=== PATIENT | female | born 1935 | race Caucasian/White ===

== ENCOUNTER 2017-12-03 10:00 | Outpatient (RCR) | payer MEDICARE, OTHER, SELFPAY ==
--- NOTE | 2017-09-26 10:57 | HP.PTEVAL ---
Patient's Visit Information JOSUE CONROY is a 82 year old F referred to Physical Therapy by Radhika Montano with a diagnosis of DDD L sided sciatica, cervical radicuolpathy. Date of Evaluation: 09/26/17 Physical Therapist: Subha Lopez - Visit Plan Frequency: 1-2x /Week Duration: 4 Months Plan: 1-2X/ week for DRY NEEdling when available to L mid trap and occiput area. 1-2X/ week for US and MT to c-spine with postural exercises and US, foam rolling ( manual), and IT band stretching L hip, with some core stability. With HEP - Subjective Subjective: Pt reports that she was doing pretty well. She reports that she has had this prblems since the . Pt has back pain and butt pain and L lateral knee pain. She saw an orthopedic Dr and he said it was not her knee and that it was her sciatic. She had a CatScan recently and said it was nerves and she was going to a chiropractor couple of times and seemed to get better....then she was pulling a sheet and sheet stopped and she fell. She got prednizone. Chiro was unhappy and said she should do an MrI. Sitting make it worse, sitting in a high chair. Pt has spinal stenosis. Pt can walk or stand for awhile but then she has to sit and then she can get up and do it again. Pt is going to [facility] in Jan and has to be able to walk. No N&T into the legs. Last she was diagnosed with DM and will be treated with diet and exercise. Pt is R handed. Last night her L shoulder started hurting looking at her phone. Last 2 nights she has had to take pain pills in order to go back to sleep. The shoulder and neck has been bothering her last 4-5 months and now affecting L arm. She has had some massages and heat for temp relief. L mid trap and L arm and up into the neck. No weakness and no N&T. She has arthritis in her hands. - Pain back pain Pain Intensity (Out of 10): 5 L hip pain Pain Intensity (Out of 10): 3 Pain Intensity Range: 5 Comment: higher with walking L knee pain Pain Intensity (Out of 10): 2 neck pain Pain Intensity (Out of 10): 4 L arm pain to elbow Pain Intensity (Out of 10): 4 - Objective Gait: walks with decrease hip extension. Palpation: Tender L greater tochanter, piriformis, and down IT band. LE MMT: B hip flex 4+/5, R hip abd 4+/5 L 4/5, B hip ext 4-/5, knee flex and knee ext B 4/5. Tight HS and L IT band on the L. Pt felt a stretch B pirifomris. Trunk/Lumbar ROM: flex 75%, Ext 50%, SB B 75%. C-spine AROM: Rot R 85%, Rot L 75%, Ext 25%, Flexion 100%, SB B 25%. UE MMT: Shld flex, abd, ER and IR B 4/5. Palpation: Extremely tight B mid traps (L worse that R), OCCIPUT. Pt felt that suboccital release was a little tender and like distraction. Bicep DTR B 2+/3. Did some manual foam rolling to the L IT Band and L hip/piriformis and pt could feel the sore spots - Goals Goal 1:: I HEP Goal Time Frame: 4-6 Weeks Goal 2:: Decrease L hip and back pain to 1/10 with ADL's and be able to lye on the L hip without pain Goal Time Frame: 4-6 Weeks Goal 3:: Decrease L arm and neck pain to 1/10 with ADL;s Goal Time Frame: 4-6 Weeks Goal 4:: Decrease muscle tenderness to the L hip to be able to sleep on the L side Goal Time Frame: 4-6 Weeks Goal 5:: Decrease muscle tightness to increase c-spine AROM ( at time of eval: C-spine AROM: Rot R 85%, Rot L 75%, Ext 25%, Flexion 100%, SB B 25%) Goal Time Frame: 4-6 Weeks - Rehabilitation Potential Rehabilitation Potential: Good - Anticipated Interventions Patient/Client Instruction: Educate patient on: Plan of Care For the Purpose of:: To decrease pain, To decrease swelling/inflammation, To increase ROM, To improve nutrient delivery to tissue, To improve muscle performance and motor function, To improve ability to perform ADL's, To improve health of tissue, To decrease soft tissue restriction, To increase flexibility/ROM Therapeutic Exercise to Include: Strength training, Postural training, Flexibilty training, Active ROM, Scapular Strength/Stabilization For the Purpose of:: To decrease pain, To increase ROM, To improve nutrient delivery to tissue, To improve muscle performance and motor function, To improve ability to perform ADL's, To improve ability of physical actions for home/community/work/leisure, To improve gait and locomotor functions, To improve health of tissue, To decrease soft tissue restriction, To increase flexibility/ROM Manual Therapy Techniques to Include: Passive ROM, Functional dry needling, Soft tissue mobilization For the Purpose of:: To increase ROM, To improve nutrient delivery to tissue, To improve muscle performance and motor function, To improve health of tissue, To decrease soft tissue restriction, To increase flexibility/ROM IF ES: Yes Cryotherapy (ice pack, ice massage): Yes Thermo therapy (hot pack): Yes Ultrasound (thermal/non thermal): Yes For the Purpose of:: To decrease pain, To improve nutrient delivery to tissue, To improve ability to perform ADL's, To improve health of tissue, To decrease soft tissue restriction Thank you for the opportunity to evaluate your patient. For Medicare and Medicare HMO plans, please review the plan of care and approve it. It will need to be FAXED BACK to us at [phone] for Medicare purposes. Please let me know if there are questions or concerns regarding this plan of care. Physician Signature: Date:
--- NOTE | 2017-10-31 11:00 | HP.PTREVAL_ITS ---
Radhika Montano, It has been my pleasure to treat JOSUE CONROY over the last 8 visits for DDD L sided sciatica, cervical radicuolpathy. Please see the progress note below for an update on the physical therapy plan of care! Subjective: Day after she has been to PT she is not ready to exercise. She uses heating pad the next morning and that helps. She tried to get one of those sticks but could not find one. She has been doing HEP couple times a week. Tato did dry needling one time and it seemed to help. Pt is thinking about doing therapeutic fitness program. Pt would like to work it out a little more and would like to continue to decrease pain so that she feels comfortable to complete her exercise rountine on her own. She would like a little bit more exercises for her shoulders as well. Pt reports that she can lay on her L side for a little while Objective/Function: c-spine AROM: flex 100%, Rot B 75%, R SB 25%, L SB 50%, Ext 25% Plan Plan: 2X/ week for 5 additional visits to work towards independence with gym rountine as she would like to do clinical wellness program, schedule DN 1 additional time for L neck/shoulder area and also give gym exercises and MORE HOME EXERCISES FOR SHOULDER for home for her L shoulder as she is only doing 2 band exercises at home. Goals Goal 1:: I HEP Goal Time Frame: 4-6 Weeks Goal Progress: Progressing Goal 2:: Decrease L hip and back pain to 1/10 with ADL's and be able to lye on the L hip without pain Goal Time Frame: 4-6 Weeks Goal Progress: Progressing Goal 3:: Decrease L arm and neck pain to 1/10 with ADL;s Goal Time Frame: 4-6 Weeks Goal Progress: Progressing Goal 4:: Decrease muscle tenderness to the L hip to be able to sleep on the L side Goal Time Frame: 4-6 Weeks Goal Progress: Progressing Goal 5:: Decrease muscle tightness to increase c-spine AROM ( at time of eval: C -spine AROM: Rot R 85%, Rot L 75%, Ext 25%, Flexion 100%, SB B 25%) Goal Time Frame: 4-6 Weeks Goal Progress: Progressing Anticipated Interventions Patient/Client Instruction: Educate patient on: Plan of Care For the Purpose of:: To decrease pain, To decrease swelling/inflammation, To increase ROM, To improve nutrient delivery to tissue, To improve muscle performance and motor function, To improve ability to perform ADL's, To improve health of tissue, To decrease soft tissue restriction, To increase flexibility/ ROM Therapeutic Exercise to Include: Strength training, Postural training, Flexibilty training, Active ROM, Scapular Strength/Stabilization For the Purpose of:: To decrease pain, To increase ROM, To improve nutrient delivery to tissue, To improve muscle performance and motor function, To improve ability to perform ADL's, To improve ability of physical actions for home/community/work/leisure, To improve gait and locomotor functions, To improve health of tissue, To decrease soft tissue restriction, To increase flexibility/ROM Manual Therapy Techniques to Include: Passive ROM, Functional dry needling, Soft tissue mobilization For the Purpose of:: To increase ROM, To improve nutrient delivery to tissue, To improve muscle performance and motor function, To improve health of tissue, To decrease soft tissue restriction, To increase flexibility/ROM IF ES: Yes Cryotherapy (ice pack, ice massage): Yes Thermo therapy (hot pack): Yes Ultrasound (thermal/non thermal): Yes For the Purpose of:: To decrease pain, To improve nutrient delivery to tissue, To improve ability to perform ADL's, To improve health of tissue, To decrease soft tissue restriction Please do not hesitate to contact me at [phone] by phone or Fax: if you have questions or concerns regarding this new plan of care! Sincerely, Subha Lopez
--- NOTE | 2017-12-03 10:53 | HP.PTDCSUM_ITS ---
HP - PT D/C Summary It has been my pleasure to treat JOSUE CONROY under orders from Radhika Montano, for the diagnosis of DDD L sided sciatica, cervical radicuolpathy for a total of 13 visit(s). Discharge Date: 12/03/17 Please see the following information for a summary of their discharge status. - Subjective Subjective: Pt reports that her shoulder is still bothering her. She reports that a couple of nights she has had to take naproxen and a muscle relaxor and then she is good for a few days but she does not want to live like that. She will talk to her Dr about a cortizone shot or an MRI. 85% sciatic improvement. L shoulder improvement 40%. - Pain back pain Pain Intensity (Out of 10): 0 L hip pain Pain Intensity (Out of 10): 4 L knee pain Pain Intensity (Out of 10): 0 neck pain Pain Intensity (Out of 10): 1 L arm pain to elbow Pain Intensity (Out of 10): 3 - Overall Improvement % Improvement: 85 - Objective Objective/Function: Full B shoulder AROM. Pt did have some increase discomfort when coming out of IR on the L side. B shld MMT: flex, abd, ER and IR 4/5 B. C-spine AROM: flexion 100%, ext 50%, SB B 50%, Rot B 75% - Goals Goal 1:: I HEP Goal Progress: Goal Met Goal 2:: Decrease L hip and back pain to 1/10 with ADL's and be able to lye on the L hip without pain Goal Progress: Goal Met Goal 3:: Decrease L arm and neck pain to 1/10 with ADL;s Goal Progress: Progressing Goal 4:: Decrease muscle tenderness to the L hip to be able to sleep on the L side Goal Progress: Goal Met Goal 5:: Decrease muscle tightness to increase c-spine AROM ( at time of eval: C -spine AROM: Rot R 85%, Rot L 75%, Ext 25%, Flexion 100%, SB B 25%) Goal Progress: Progressing - Plan Plan: DC PT to Physician for possible injection to L shoulder or further diagnostics. Pt to do I H&W routine. - D/C Information Discharge Comments: DC PT to H&W and also back to physician for possible injection in L shoulder. If there are questions or concerns regarding this patient's physical therapy, please feel free to call me at [phone]. Thank you for the referral of this patient. Sincerely, Subha Lopez
== END 2017-12-03 19:00 | disposition home or self-care (01) ==
LOC: PT 10:00
PROVIDERS: Family Provider Internal Medicine; PCP Internal Medicine; Visit Provider Internal Medicine
DX: M51.36 Other intervertebral disc degeneration, lumbar region (principal); M54.12 Radiculopathy, cervical region; G89.29 Other chronic pain
CPT/HCPCS: 97035; 97110; 97140; 97162; 97530

== ENCOUNTER 2018-10-08 09:30 | Outpatient (RCR) | payer MEDICARE, OTHER, SELFPAY ==
--- NOTE | 2018-08-12 10:12 | HP.PTEVAL ---
Patient's Visit Information JOSUE CONROY is a 83 year old F referred to Physical Therapy by Ezequiel Stern MD with a diagnosis of LUMBAROSACRAL RADICULAOPATHY,DEGENERATION OF LUMBAROSCRAL DIS. Date of Evaluation: 08/12/18 Physical Therapist: Juan A Montilla PT, Cert MDT, OCS - Visit Plan Frequency: 2x /Week Duration: 4 Weeks Plan: PT INTERVENTIONS DLS,LUMBAR FLEXION,FLEXABLITY,MODALTIES FOR PAIN RELEIVE - Subjective Findings: This 83 y/o female presents to physical therapy to physical therapy with lumbar radicular . Patient has had lumbar pain for many years. Patient symptoms located left lumbar buttuck to lateral knee. Aggravating factors standing,bending,lifting,walking. Allevating symptoms better with rest and sitting.Symptoms affects sleeping. Pain described as ache. Patient denies paratesia/tingling. Bowel/bladder-. Coughing/sneezing -. Patient has seen PT in past. Seen DR Stern pain management recommended gabepetin.Patient seen chiropractor. Patient has h/o DDD /spinal stenosis. Patient symptoms affects ADL's and housework tasks. Patient symptoms affects QOL and function. VOCATION: retired. SOCIAL: single - Pain Left Back Pain Intensity (Out of 10): 4 Pain Intensity Range: 10 Left Lower Extremity Pain Intensity (Out of 10): 1 Pain Intensity Range: 10 - Objective POSTURE: rounded shoulders head foward,. PALAPTION: tender left LS-. GAIT: reciprocal [place]ol[place]. NEURO: intact ,reflexs L3-4,L4-5,L5-S1 2/3. MMT: quads/hams 4/5,hip flexion 4-/5.ankle 4/5. FLEXABLITY: hams min tight. LUMBAR ROM: flexion min loss,extension min/mod loss,side glides mod loss - Special Tests L/S Slump test left side: Negative L/S Slump test right side: Negative L/S Left Straight Leg Raise: Negative L/S Right Straight Leg Raise: Negative Lumbar Standing: Flexion - Mechanical Response: No effect Lumbar Standing: Flexion - Symptoms During Testing: No effect Lumbar Standing: Flexion - Symptoms After Testing: No effect Lumbar Standing: Extension - Mechanical Response: No effect Lumbar Standing: Extension - Symptoms During Testing: Increases Lumbar Standing: Extension - Symptoms After Testing: No worse Lumbar Standing: Right Side Glides - Mechanical Response: No effect Lumbar Standing: Right Side [place] - Symptoms During Testing: Increases Lumbar Standing: Right Side [place] - Symptoms After Testing: No worse Lumbar Standing: Left Side [place] - Mechanical Response: No effect Lumbar Standing: Left Side [place] - Symptoms During Testing: No effect Lumbar Standing: Left Side [place] - Symptoms After Testing: No effect Lumbar Lying: Flexion - Mechanical Response: No effect Lumbar Lying: Flexion - Symptoms During Testing: Decreases Lumbar Lying: Flexion - Symptoms After Testing: Better - Goals Goal 1:: Patient to be Independant with HEP Goal Time Frame: 4-6 Weeks Goal 2:: Patient to decrease lumbar pain by 50% or greater to improve function. Goal Time Frame: 4-6 Weeks Goal 3:: Patient to improve lumbar ROM for function of recovery Goal Time Frame: 4-6 Weeks Goal 4:: Patient to improve back owestry score by 5 points or greater to improve function. Goal Time Frame: 4-6 Weeks - Rehabilitation Potential Physical Therapy Diagnosis: This patient has L-S pain affects ROM ,strength ,ADL'S and function thus benifit from skilled PT Rehabilitation Potential: Good - Anticipated Interventions Patient/Client Instruction: Educate patient on: Condition, Plan of Care For the Purpose of:: To decrease pain, To increase ROM, To improve muscle performance and motor function, To improve ability to perform ADL's, To increase tolerance to activity/condition/position, To improve ability of physical actions for home/community/work/leisure, To improve health of tissue, To decrease soft tissue restriction, To increase flexibility/ROM, To improve ability to perform tasks related to life management Therapeutic Exercise to Include: Strength training, Postural training, Flexibilty training, Dynamic Lumbar Stabilization For the Purpose of:: To improve muscle performance and motor function, To improve ability to perform ADL's, To increase tolerance to activity/condition/position, To improve ability of physical actions for home/community/work/leisure, To improve gait and locomotor functions, To improve health of tissue, To decrease soft tissue restriction, To increase flexibility/ROM, To improve ability to perform tasks related to life management TENS: Yes IF ES: Yes Cryotherapy (ice pack, ice massage): Yes Thermo therapy (hot pack): Yes Ultrasound (thermal/non thermal): Yes For the Purpose of:: To decrease pain, To increase ROM, To improve nutrient delivery to tissue, To increase oxygenation perfusion, To improve health of tissue, To decrease soft tissue restriction Thank you for the opportunity to evaluate your patient. For Medicare and Medicare HMO plans, please review the plan of care and approve it. It will need to be FAXED BACK to us at [phone] for Medicare purposes. For Medicare only, by signing this I certify the plan of care. Please let me know if there are questions or concerns regarding this plan of care. Physician Signature: Date:
--- NOTE | 2018-10-08 10:00 | HP.PTDCSUM ---
HP - PT D/C Summary It has been my pleasure to treat JOSUE CONROY under orders from Ezequiel Stern MD, for the diagnosis of LUMBAROSACRAL RADICULAOPATHY,DEGENERATION OF LUMBAROSCRAL DISC for a total of 11 visit(s). Discharge Date: 10/08/18 Please see the following information for a summary of their discharge status. - Subjective Subjective: Doing better ..Able to do more ADL'S AT HOME - Pain Left Back Pain Intensity (Out of 10): 0 Left Lower Extremity Pain Intensity (Out of 10): 0 - Overall Improvement % Improvement: 50 - Objective Objective/Function: POSTURE: WFL. GAIT: NORMAL STEVE. MMT: 4/5 QUADS/HAMS /HIP/ANKLE. LUMBAR ROM: FLEXION MIN LOSS ,EXTENSION ,MOD LOSS,SIDE GLIDES MIN LOSS. FLEXABLITY: HAMS MIN LOSS - Goals Goal 1:: Patient to be Independant with HEP Goal Progress: Goal Met Goal 2:: Patient to decrease lumbar pain by 60% or greater to improve function. Goal Progress: Goal Met Goal 3:: Patient to improve lumbar ROM for function of recovery Goal Progress: Goal Met Goal 4:: Patient to improve back owestry score by 5 points or greater to improve function. Goal Progress: Goal Met Goal Progress: Progressing - Plan Plan: D/C - D/C Information Discharge Comments: HEP If there are questions or concerns regarding this patient's physical therapy, please feel free to call me at [phone]. Thank you for the referral of this patient. Sincerely, Juan A Montilla PT, Cert MDT, OCS
== END 2018-10-08 19:00 | disposition home or self-care (01) ==
LOC: PT 09:30
PROVIDERS: Family Provider Internal Medicine; PCP Internal Medicine; Referring Provider Anesthesiology Pain Medicine; Visit Provider Anesthesiology Pain Medicine
DX: M54.17 Radiculopathy, lumbosacral region (principal); M51.37 Other intervertebral disc degeneration, lumbosacral region
CPT/HCPCS: 97014; 97110; 97162; 97530; G0283

== ENCOUNTER 2020-06-01 10:00 | Outpatient (RCR) | payer MEDICARE, OTHER, SELFPAY | END 2020-06-01 23:59 | LOC: IMMUN 10:00 | PROVIDERS: PCP Internal Medicine; Visit Provider Family Medicine | DX: Z23 Encounter for immunization (principal) | CPT/HCPCS: 0011A; 0012A; 91301 ==

== ENCOUNTER 2020-12-03 20:50 | Emergency (ER) | payer MEDICARE, OTHER, SELFPAY ==
[2020-12-03 20:52] VITALS: BP 218/116; PULSE 79; RESP 14; TEMP 37; O2SAT 98; BMI 32.0
[2020-12-03 21:05] VITALS: BP 178/84; PULSE 78
[2020-12-03 21:35] VITALS: BP 152/81; PULSE 72; RESP 13; O2SAT 95
--- NOTE | 2020-12-03 21:48 | CT_ITS ---
HISTORY: Facial numbness TECHNIQUE: Multiple axial images were obtained of the brain without intravenous contrast. A radiation dose optimization technique was used for this scan. IV Contrast dosage and agent: None. COMPARISON: 03/26/14 FINDINGS: # of images incl. paperwork: 242 PARANASAL SINUSES AND MASTOID AIR CELLS: Clear. INTRACRANIAL HEMORRHAGE: None. BRAIN PARENCHYMA: No CT evidence of stroke. No intracranial masses. There is preservation of the perez/white matter interface. Posterior fossa structures are unremarkable. There is hypoattenuation of the periventricular white matter. Chronic involutional changes are noted. CSF SPACES: Appropriate for age. There is no hydrocephalus. MASS EFFECT: None. CALVARIUM: No acute fracture. CT/Brain/Head without Contrast IMPRESSION: Chronic involutional and white matter changes. No acute intracranial process. Individualized dose optimization techniques were used for this CT. at 2238 Reported and signed by: Jimmie Weiss MD Electronically Signed: Jimmie Weiss MD at 22:36 EDT Tel , Service support ,
--- NOTE | 2020-12-03 22:22 | EX.ED.DYSGE1 ---
HPI History of Present Illness Chief Complaint: Numb/Ting Informant: patient Narrative Narrative: Patient is a 85-year-old female who presents to the emergency department for left-sided facial numbness and she felt like her left upper lip was drooping. This has been going on and off over the past week. She feels like the sensation is intact at this time. She denies any vision problems. No significant headache. She denies any neck pain or stiffness. No weakness or loss of sensation going down her extremities. She denies any speech issues. She states that many years ago she did have a right-sided facial numbness which they never found out the cause. I discussed Cardona's palsy but never for this diagnosis. She denies any history of strokes. No history of atrial fibrillation. Denies any falls or head injury. She is on a blood thinning medications. [facility] Medical History (Updated 12/03/20 @ 23:[address] Osito Almonte DO) HTN (hypertension) Tonsillectomy planned Home Medications aspirin [Baby Aspirin] 81 mg PO DAILY 12/03/20 [History Last Taken Unknown] lorazepam [Ativan] 0.5 mg PO DAILY PRN 12/03/20 [History Last Taken Unknown] losartan 100 mg PO DAILY 12/03/20 [History Last Taken Unknown] Allergy/AdvReac Type Severity Reaction Status Date / Time atorvastatin Allergy NEEDS Verified 12/03/20 20:57 FOLLOW-UP cephalexin Allergy NEEDS Verified 12/03/20 20:57 FOLLOW-UP colesevelam HCl Allergy Other Verified 12/03/20 20:57 [From WelChol] lisinopril Allergy NEEDS Verified 12/03/20 20:57 FOLLOW-UP Penicillins Allergy Other Verified 12/03/20 20:57 simvastatin [From Zocor] Allergy NEEDS Verified 12/03/20 20:57 FOLLOW-UP Surgical History (Updated 12/03/20 @ 21:02 by Sherin Mcclelland) History of hysterectomy Hx of appendectomy Hx of cholecystectomy Hx of removal of ovary Social History Smoking Status: Former smoker ROS ROS ED Constitutional Constitutional ED: Denies chills or fever(s) Eyes Eyes: Denies change in vision ENT ENT ED: Denies epistaxis or rhinorrhea Cardiovascular Cardiovascular: Denies chest pain or palpitations Respiratory/Chest Respiratory/Chest: Denies cough, dyspnea or dyspnea on exertion Gastrointestinal Gastrointestinal: Denies abdominal pain, diarrhea, nausea or vomiting Genitourinary Genitourinary ED: Denies dysuria, hematuria or urinary frequency Musculoskeletal Musculoskeletal: Denies back pain or neck pain Integumentary Denies rash Neurologic Neurologic: Reports paresthesias; Denies dizziness, headache(s) or weakness EXAM Physical Exam Const Vital Signs: 12/03/20 20:52 12/03/20 21:05 12/03/20 21:35 Temperature 98.6 F Temperature Source Oral Pulse Rate 79 78 72 Respiratory Rate 14 13 Blood Pressure 218/116 H 178/84 H 152/81 H Blood Pressure Mean 150 115 104 Pulse Ox 98 95 Oxygen Delivery Method Room Air Room Air Positive well nourished and well developed General Appearance ED: well developed and NAD HEENT Reports normocephalic, head/scalp atraumatic and moist mucous membranes Eyes PERRL and EOMs intact bilaterally Neck supple General: Negative for tenderness Chest Wall inspection of chest normal Resp normal respiratory effort and clear to auscultation bilaterally Auscultation: Negative for rales, rhonchi or wheezes Cardio regular rate, regular rhythm and no murmurs GI normal to inspection, nondistended, normoactive bowel sounds and non-tender Palpation: soft; Negative for guarding or rebound tenderness present Extremity normal to inspection General Extremety ED: Negative for edema or tenderness General Extremity: Negative for edema Neuro oriented x3, CN's II-XII intact bilaterally and no sensory deficits noted Neuro Narrative: No significant facial droop appreciated. Her left upper lip does lie slightly lower than the right side. Very mild if at all flattening of the nasolabial fold on left. Sensation is intact of upper and lower face. No focal neurological deficits. NIH score 0. Sensorium / Orientation: alert Motor Exam: strength 5/5 throughout Psych mental status grossly normal Skin no rashes or lesions noted MDM MDM MDM Narrative Medical decision making narrative: Patient presents to the ED for paresthesias of the left face. She thought that her upper lip was slightly drooping. On arrival to the ED she is hypertensive but this did come shake backboard notcher to normal range throughout stay. All the rest of her vitals are within normal limits. On examination she has no focal deficits. She has paresthesias but no loss of sensation. I have very low concern for acute CVA causing her symptoms. Has been going on for multiple days at this point. Will check a CT scan of the head just make sure there is no mass, bleed. CT imaging only consistent with chronic changes. No acute findings appreciated. Since symptoms have been going on for the past week and they have been fluctuating without significant progression I do not feel patient requires hospitalization for emergent MRI. I did make a neurology referral. She develops any worsening symptoms she needs to come back to the emergency department immediately. Return precautions are reviewed with her. She understands and is agreeable to plan. All questions were answered. Radiography Diagnostic Testing: Radiology Impression Brain CT 12/03/20 21:48 IMPRESSION: Chronic involutional and white matter changes. No acute intracranial process. Individualized dose optimization techniques were used for this CT. at 2238 Reported and signed by: Jimmie Weiss MD Electronically Signed: Jimmie Weiss MD at 22:36 EDT Tel , Service support , Discharge Plan Triage Chief Complaint: Numb/Ting ED Provider: Osito Almonte Dx/Rx/DC Orders Clinical Impression: Facial paresthesia Instructions: ED Paraesthesias Prescriptions: No Action aspirin [Baby Aspirin] 81 mg Tablet,Chewable 81 mg PO DAILY RF: 0 losartan 100 mg Tablet 100 mg PO DAILY RF: 0 lorazepam [Ativan] 0.5 mg Tablet 0.5 mg PO DAILY PRN (Reason: Anxiety) RF: 0 Primary Care Provider: Radhika Montano Referrals: Radhika Montano MD [Primary Care Provider] - Mendez Miller MD [STAFF PHYSICIAN] - 1 Day Disposition Disposition: Home, Self Care Discharge Date/Time: 12/03/20 23:13
== END 2020-12-03 23:13 | disposition home or self-care (01) ==
PROVIDERS: Emergency Provider Emergency Medicine; PCP Internal Medicine
DX: R20.2 Paresthesia of skin (principal); I10 Essential (primary) hypertension; Z79.899 Other long term (current) drug therapy; Z79.82 Long term (current) use of aspirin; Z87.891 Personal history of nicotine dependence
CPT/HCPCS: 70450; 99285

== ENCOUNTER 2021-01-04 09:30 | Outpatient (RCR) | payer MEDICARE, OTHER, SELFPAY ==
[2020-12-05 10:09] VITALS: BMI 32.0
--- NOTE | 2020-12-29 09:31 | HP.OTEVAL_ITS ---
Patient's Visit Information JOSUE CONROY is a 85 year old F, referred to Occupational Therapy by Dr. Chan Kaur DO, with a diagnosis of R IF trigger finger. Date of Evaluation: 12/21/20 Occupational Therapist: Viviane Dunaway, OTR/L, CHT - Subjective This 85/F was seen for initial OT eval today for a trigger finger of her R IF. She stated that she does not remember exactly what she did, but she believes it was when she was making 50-60 cards over the past year. She is a retired bilingual elementary school teacher and enjoys playing [employer], [employer], [employer], and reading. Her R MF started triggering almost a year ago, but has decrease slightly as the IF has started. Her ADLs and IADLs are fine, but she finds that when she drains pasta from a pot, she has a little discomfort. She has difficulty opening new jars, and she has adapted it by using a rubber gripper. Her triggers do not wake her up at night anymore now that she is using a brace at night. She is R handed and stated that her hand writing is a little difficult now. - ROM Wrist: R: 55*/50* L: 55/20* (this was due to pain with over use) Opposition: 10 MP: R- IF: 65*, MF: 75*. L- IF: 75* MF: 85* PIP: R- IF: 100* MF: 98*. L: - IF: 100*, MF: 100* DIP: R- IF: 35*, MF: 43*. L- IF: 50*, MF: 50* - Strength Doorperson: R: 23#, L: 24# Lateral Pinch: R: 13#, L: 15# Tripod Pinch: R: 11#, L: 11# - Sensation Sensation Comments: denies - Quick DASH-Disab of Arm,Shoulder& Hand Quick DASH Score: 31.8175 - Rehabilitation General Assessment: Pt demonstrated decreased ROM in PIP and DIP jts of her R IF and MF, and decreased lateral pinch due to her trigger fingers. Pt would benefit from skilled OT services 2x a week for 3 weeks to increase lateral pinch strength and decrease inflammation causing triggers in her IF and MF. Today, therapist educated pt on techniques to decrease triggers, icing/heating techniques, and fabricated a splint to be worn during the day to decrease triggers. Pt agreed and understood POC. Therapy session was directly supervised and doc. approved by Viviane BROWN/L,CHT. Rehabilitation Potential: Good - Anticipated Interventions A/AAROM/PROM, Strengthening, Modalities, Orthoses, Joint Protection/Energy Conservation, Home Program - Visit Plan Frequency: 2x /Week Duration: 3 Weeks TEXT: Thank you for the opportunity to evaluate your patient. For Medicare and Medicare HMO plans, please review the plan of care and approve it. It will need to be FAXED BACK to us at [phone] for Medicare purposes. Please let me know if there are questions or concerns regarding this plan of care. Physician Signature: Date:
--- NOTE | 2021-05-15 10:40 | HP.OTDCSUM_ITS ---
It has been my pleasure to treat JOSUE CONROY under orders from Dr. Chan Kaur DO, for the diagnosis of R IF trigger finger for a total of 5 visit(s). Please see the following information for a summary of their discharge status. % Improvement: 0 Objective/Function: pt continues to have trigger of right IR- at this time pt hernandez s not made gains therapist rec'd return to Patient Goals: Regain Mobility, Use Hand/Wrist/Arm Normally Again, Increase ROM, Resume Hobbies Plan: d/c Discharge Comments: pt had not made gains with conservative methods for trigger finger. Therapist rec'd return to for possible surgical intervention. If there are questions or concerns regarding this patient's occupational therapy, please fell free to call me at [phone]. Thank you for the referral of this patient. Sincerely, Viviane Dunaway, OTR/L, CHT
== END 2021-01-04 19:00 | disposition home or self-care (01) ==
LOC: OT 09:30
PROVIDERS: PCP Internal Medicine; Referring Provider Orthopaedic Surgery; Visit Provider Orthopaedic Surgery
DX: M65.321 Trigger finger, right index finger (principal); M65.331 Trigger finger, right middle finger
CPT/HCPCS: 97035; 97140; 97165; 97530

== ENCOUNTER 2021-12-11 10:00 | Outpatient (RCR) | payer MEDICARE, OTHER, SELFPAY ==
--- NOTE | 2021-09-11 09:47 | HP.PTEVAL_ITS ---
Patient's Visit Information JOSUE CONROY is a 86 year old F referred to Physical Therapy by TRIXIE Crowe with a diagnosis of Chronic R sided back pain/sciatica. Date of Evaluation: 09/11/21 Physical Therapist: KRUNAL Amaral - Visit Plan Frequency: 2x /Week Duration: 2 Months Plan: 2X/ week for 4-8 weeks for AT for core stability (probably due to stenosis), LE strengthening, gait training with HEP. HEP: SKC, DKC, seated trunk flexion - Subjective Pt having trouble with her R sciatic nerve and has been seeing chiro for 2 months and saw a massage therapist twice and gets relief for a couple of days. She got a shot in her back in Nov that lasted a day ( Dr Thakur). She can not stand more than 15 min then has to sit down. Her L knee is bothering her now. She can not walk more than 15-20 min without hurting. She saw the physicians assitant. Its been awhile since she had an MRI. She has DDD and spinal stenosis. She has not had any surgeries. She can sit for how ever long she wants too. She will walk around the store for maybe 10 min and then has to sit and then can get back up again. - Pain back pain Pain Intensity (Out of 10): 0 Pain Intensity Range: 8 - Objective Gait: Walks with decrease stride and decrease stance time on the R LE, slightly flexed trunk. Trunk AROM: flexion 75%, ext 75%, SB B 100%, Rot B 75%. LE MMT: B hip flex 4-/5, B knee ext/flex 4/5, Hip abd B 4+/5, Hip ext 4-/5, pt is able to do 3/4 normal ROM bridge. She is able to walk on heels and toes. Pt felt a stretch with Double knee to chest and seated trunk flexion with legs into hip abd. - Balance/Special Test Scores Lower Extremity Functional Score: 47 - Goals Goal 1:: I HEP Goal Time Frame: 4-6 Weeks - Rehabilitation Potential Rehabilitation Potential: Good - Anticipated Interventions Patient/Client Instruction: Educate patient on: Condition, Plan of Care For the Purpose of:: To decrease pain, To increase ROM, To improve nutrient delivery to tissue, To improve muscle performance and motor function, To improve ability to perform ADL's, To increase tolerance to activity/condition/position, To improve performance and independence with ADL's, To decrease level of supervision to perform tasks, To improve ability of physical actions for home/community/work/leisure, To improve gait and locomotor functions, To improve health of tissue, To decrease soft tissue restriction, To increase flexibility/ROM Therapeutic Exercise to Include: Strength training, Postural training, F lexibilty training, Gait and locomotor training, Neuromotor development, In an aquatic setting, Active ROM, Dynamic Lumbar Stabilization, Scapular Strength/Stabilization For the Purpose of:: To decrease pain, To increase ROM, To improve nutrient delivery to tissue, To increase oxygenation perfusion, To improve muscle performance and motor function, To improve ability to perform ADL's, To increase tolerance to activity/condition/position, To improve performance and independence with ADL's, To decrease level of supervision to perform tasks, To improve ability of physical actions for home/community/work/leisure, To improve health of tissue, To decrease soft tissue restriction, To increase flexibility/ROM Functional Training to Include: Gait training For the Purpose of:: To improve gait and locomotor functions Thank you for the opportunity to evaluate your patient. For Medicare and Medicare HMO plans, please review the plan of care and approve it. It will need to be FAXED BACK to us at [phone] for Medicare purposes. For Medicare only, by signing this I certify the plan of care. Please let me know if there are questions or concerns regarding this plan of care. Physician Signature: Date:
--- NOTE | 2021-10-12 11:02 | HP.PTREVAL ---
Bria Kahn, MICHELLE-C, It has been my pleasure to treat JOSUE CONROY over the last 10 visits for Chronic R sided back pain/sciatica. Please see the progress note below for an update on the physical therapy plan of care! Subjective: Pt reports that her back pain is better but her R butt cheek hurts if she stands more than 10-15 min and then she has to find a chair. Her R butt cheek pain gets to her multiple times a day. She can now walk without pain. Pt wishes to continue 1 day a week in water and 1 day a week on land with more exercises to do at home on DC Objective/Function: Gait: increase stance time on L Plan Plan: 2X/ week for 3 weeks for AT for core stability (probably due to stenosis), LE strengthening, gait training alternating with land therapy for core stability, gait training and LE strengthening with HEP Balance/Gait/Functional tests - Balance/Special Test Scores Lower Extremity Functional Score: 47 Goals Goal 1:: I HEP Goal Time Frame: 4-6 Weeks Goal Progress: Goal Met Goal 2:: Be able to stand for 15 minutes without having R leg pain Goal Time Frame: 2-4 Weeks Goal 3:: Walk with less of an antalgic gait Goal Time Frame: 2-4 Weeks Anticipated Interventions Patient/Client Instruction: Educate patient on: Condition, Plan of Care For the Purpose of:: To decrease pain, To increase ROM, To improve nutrient delivery to tissue, To improve muscle performance and motor function, To improve ability to perform ADL's, To increase tolerance to activity/condition/position, To improve performance and independence with ADL's, To decrease level of supervision to perform tasks, To improve ability of physical actions for home/community/work/leisure, To improve gait and locomotor functions, To improve health of tissue, To decrease soft tissue restriction, To increase flexibility/ROM Therapeutic Exercise to Include: Strength training, Postural training, Flexibilty training, Gait and locomotor training, Neuromotor development, In an aquatic setting, Active ROM, Dynamic Lumbar Stabilization, Scapular Strength/Stabilization For the Purpose of:: To decrease pain, To increase ROM, To improve nutrient delivery to tissue, To increase oxygenation perfusion, To improve muscle performance and motor function, To improve ability to perform ADL's, To increase tolerance to activity/condition/position, To improve performance and independence with ADL's, To decrease level of supervision to perform tasks, To improve ability of physical actions for home/community/work/leisure, To improve health of tissue, To decrease soft tissue restriction, To increase flexibility/ROM Functional Training to Include: Gait training For the Purpose of:: To improve gait and locomotor functions Please do not hesitate to contact me at [phone] by phone or if you have questions or concerns regarding this new plan of care! Sincerely, Subha Lopez MPT
--- NOTE | 2021-12-11 10:57 | HP.PTDCSUM ---
It has been my pleasure to treat JOSUE CONROY referred by TRIXIE Crowe, with the diagnosis of Chronic R sided back pain/sciatica for a total of 17 visit(s). Discharge Date: 12/11/21 Please see the following information for a summary of their discharge status. Subjective: Pt had a tough weekend from Fri to this morning and pain was 7-8/10 and the pain was even walking. Pt thinks that she concentrates in the water too hard and gets worse when she is out of the water. She reports that making the bed is not easy. She does her exercises in bed. Pt did think that she was improving but then she got COVID and now she thinks that she is starting over again. She is so frustrated. She noticed a difference in her back with her arch supports on. Pt feels that she has enough exercises at home and will continue with excises for a few weeks. Pt reports that she was 75% improvement but then covid hurt and now she feels she is back down in improvement. Pt can walk mabne 5 min before her R leg starts to hurt. back pain Pain Intensity (Out of 10): 2 LLE Pain Intensity (Out of 10): 2 % Improvement: 75 Objective/Function: gait: walks with normal gait pattern with decreased stride but more upright posture. Goal 1:: I HEP Goal Progress: Goal Met Goal 2:: Be able to stand for 15 minutes without having R leg pain Goal Progress: Not Progressing Goal 3:: Walk with less of an antalgic gait Goal Progress: Goal Met Plan: *x1 more land appt before f/u with supervising PT (directly following). Would recommend continued AT at this time d/t progress made, however, room for greater improvement. 2X/ week for 3 weeks for AT for core stability (probably due to stenosis), LE strengthening, gait training alternating with land therapy for core stability, gait training and LE strengthening with HEP Discharge Comments: DC PT If there are questions or concerns regarding this patient's physical therapy, please feel free to call me at [phone]. Thank you for the referral of this patient. Sincerely, Subha Lopez, MPT Balance/Gait/Functional tests - Balance/Special Test Scores Lower Extremity Functional Score: 47
== END 2021-12-11 13:42 | disposition home or self-care (01) ==
LOC: PT 10:00
PROVIDERS: PCP Internal Medicine; Referring Provider Clinical Nurse Specialist; Visit Provider Clinical Nurse Specialist
DX: G54.0 Brachial plexus disorders (principal); M54.42 Lumbago with sciatica, left side; G89.29 Other chronic pain
CPT/HCPCS: 97110; 97113; 97161; 97530

== ENCOUNTER 2022-04-25 11:00 | Outpatient (RCR) | payer MEDICARE, OTHER, SELFPAY ==
--- NOTE | 2022-04-04 11:29 | HP.OTEVAL_ITS ---
Patient's Visit Information JOSUE CONROY is a 86 year old F, referred to Occupational Therapy by Dr. Shauna Dennis MD, with a diagnosis of right trigger finger. Date of Evaluation: 04/04/22 Occupational Therapist: Viviane Dunaway, OTR/Yanique, CHT - Subjective This 86 year old female was seen for OT eval with dx of right trigger finger. pt states after conservative methods failed she underwent right IF,MF,RF and small finger trigger finger release on 03/20/22. pt arrives to OT session with clean dry incisions- along with custom night orthosis. pt states due to surgical soreness she is limited with ADLs and and IADLs. pt would like to return to her PLOF. - ADLs Eating: Cut food Kitchen: Chop with knife, Peel fruits & vegetables, Open jars, Open bottle caps - Pain right hand 2 Pain Intensity Range: 0, 2, 5 - ROM Wrist: right 45/40 left 60/46 Opposition: Kapandji opposition scale right 10 left 10 ROM Comments: right hand .5 away from composite fist - left full fist. full digit extension right and left. pt limited due to swelling and slight discomfort - Strength Reverberatory Furnace Operator: right NT left 50# Lateral Pinch: right NT left 12# Tripod Pinch: right NT left 6# - Edema Wrist: right 16cm left 15.5cm PIP: right MF 7.0 left 6.3 Other: MCP circumference 19.5cm left 19cm - Sensation Sensation Comments: denies - Quick DASH-Disab of Arm,Shoulder& Hand Quick DASH Score: 52.2725 - Goals Goal:100% adherence to protocol: Yes Goal:Daily scar massage when approriate: Yes Goal:ROM equal to unaffected hand: Yes Goal:Reverberatory Furnace Operator/Pinch strength at least 75% of unaffected hand: Yes Goal:No pain with affected hand use: Yes Goal:PIP Circumferences equal to unaffected hand: Yes Goal:Full use of affected hand in daily activities including: Yes - Rehabilitation General Assessment: Pt arrives s/p 2 weeks and 1 day s/p from multi finger trigger finger release. pt demo with slight swelling and limited tight composite fist-pain and soreness from sx. this limits pt from performing all ADls at [facility]. pt demo need for skilled OT services 1x week for 3-4 weeks to ensure pt gains full ROM and has returned to her PLOF. Rehabilitation Potential: Good - Anticipated Interventions A/AAROM/PROM, Strengthening, Scar Care, Triggerpoint Release, Modalities, Orthoses, Joint Protection/Energy Conservation, Ergonomic Education, Education re Diagnosis, Home Program - Visit Plan Frequency: 1-2x /Week Duration: 4 Weeks TEXT: Thank you for the opportunity to evaluate your patient. For Medicare and Medicare HMO plans, please review the plan of care and approve it. It will need to be FAXED BACK to us at [phone] for Medicare purposes. Please let me know if there are questions or concerns regarding this plan of care. Physician Signature: Date:
--- NOTE | 2022-08-21 15:42 | HP.OT.NRP ---
JOSUE Renetta CONROY was seen in my office for initial evaluation on 04/04/22. The following Plan of Care was established for this patient: Initial Frequency: 1-2x /Week Initial Duration: 4 Weeks Plan: pt to return to will see if pt schedules Anticipated Interventions: A/AAROM/PROM, Strengthening, Scar Care, Triggerpoint Release, Modalities, Orthoses, Joint Protection/Energy Conservation, Ergonomic Education, Education re Diagnosis, Home Program This patient was last seen in our office 04/25/22. Pertinent comments regarding their Occupational therapy will appear below: pt was seen for 4 OT sessions. Due to time lapse in services pt d/c. At this point I will be discontinuing this patient from occupational therapy. I would be happy to see this patient again in the future if found appropriate by the physician. Thank you! Viviane Dunaway, OTR/L, CHT
== END 2022-04-25 19:00 | disposition home or self-care (01) ==
LOC: OT 11:00
PROVIDERS: PCP Internal Medicine
DX: M65.341 Trigger finger, right ring finger (principal); M65.321 Trigger finger, right index finger; Z47.89 Encounter for other orthopedic aftercare
CPT/HCPCS: 97035; 97110; 97140; 97166

== ENCOUNTER 2022-05-04 03:06 | Emergency (ER) | payer MEDICARE, OTHER, SELFPAY ==
[2022-05-04 03:07] VITALS: BP 224/96; PULSE 78; RESP 16; TEMP 36.9; O2SAT 95; BMI 28.4
--- NOTE | 2022-05-04 03:51 | EX.ED.DYSGE1 ---
HPI History of Present Illness Chief Complaint: Headache Narrative Narrative: Patient is an 86-year-old female with past medical history of hypertension and recurrent neck and shoulder pain. She states that she has chronic left-sided facial numbness which she is seeing neurology for. She also reports she had a recent MRI and MRA of her head and neck that did not reveal any acute findings. She states that last night she was sitting around when she got pain in her head/neck region with no trauma. She states that she checked her blood pressure and it was elevated which reportedly is not abnormal for her but it still concerned her and because of her previous/chronic facial numbness she was concerned this could be stroke in nature and therefore comes into the hospital for evaluation. [facility] Medical History (Updated 05/04/22 @ 03:[address] Jack Willett DO) HTN (hypertension) Tonsillectomy planned Home Medications aspirin 81 mg chewable tablet 81 mg PO DAILY 12/03/20 [History Last Taken Unknown] lorazepam 0.5 mg tablet (Ativan) 0.5 mg PO DAILY PRN Anxiety 12/03/20 [History Last Taken Unknown] losartan 100 mg tablet 100 mg PO DAILY 12/03/20 [History Last Taken Unknown] metformin 500 mg tablet,extended release 24 hr 500 mg PO DAILY 05/04/22 [History Last Taken Unknown] methocarbamol 500 mg tablet 500 mg PO 4X/DAY PRN PRN Muscle pain/spasm #40 tabs 05/04/22 [Rx Last Taken Unknown] Allergy/AdvReac Type Severity Reaction Status Date / Time atorvastatin Allergy NEEDS Verified 05/04/22 03:10 FOLLOW-UP cephalexin Allergy NEEDS Verified 05/04/22 03:10 FOLLOW-UP colesevelam HCl Allergy Other Verified 05/04/22 03:10 [From WelChol] lisinopril Allergy NEEDS Verified 05/04/22 03:10 FOLLOW-UP Penicillins Allergy Other Verified 05/04/22 03:10 simvastatin [From Zocor] Allergy NEEDS Verified 05/04/22 03:10 FOLLOW-UP Surgical History History of hysterectomy Hx of appendectomy Hx of cholecystectomy Hx of removal of ovary Social History Smoking Status: Former smoker ROS ROS ED Constitutional Constitutional ED: Denies chills or fever(s) Eyes Eyes: Denies change in vision ENT ENT ED: Denies sore throat Cardiovascular Cardiovascular: Denies chest pain or palpitations Respiratory/Chest Respiratory/Chest: Denies cough or dyspnea Gastrointestinal Gastrointestinal: Denies abdominal pain, diarrhea, nausea or vomiting Genitourinary Genitourinary ED: Denies dysuria Musculoskeletal Musculoskeletal: Reports arthralgias and neck pain; Denies myalgias Integumentary Denies rash Neurologic Neurologic: Reports paresthesias; Denies headache(s) Hematologic/Lymphatic Hematologic/Lymphatic: Denies easy bleeding or easy bruising EXAM Physical Exam Const Vital Signs: 05/04/22 03:07 05/04/22 04:04 Temperature 98.5 F Temperature Source Oral Pulse Rate 78 81 Respiratory Rate 16 16 Blood Pressure 224/96 H 176/82 H Blood Pressure Mean 138 Pulse Ox 95 97 Oxygen Delivery Method Room Air Positive well nourished and well developed General Appearance ED: well developed HEENT Reports moist mucous membranes Eyes PERRL and EOMs intact bilaterally Neck supple Neck Narrative: No carotid bruit noted No nuchal rigidity or meningeal signs present Resp normal respiratory effort and clear to auscultation bilaterally Cardio regular rate and regular rhythm Rate: other Other Details: Radial pulses are plus 2 out of 4 bilaterally are equal and symmetric GI normal to inspection, nondistended, normoactive bowel sounds, non-tender and non-distended GI Narrative: No voluntary guarding or rigidity no pulsatile mass Auscultation: normoactive bowel sounds Palpation: soft Back/Spine Back/Spine Narrative: There is pain with palpation along the left paracervical muscle belly region and extends into the left trapezius region of the shoulder. There is muscle spasm in this area that is noted as well upper extremities are neurovascular intact; AIN/PIN are intact and normal Extremity normal to inspection Neuro oriented x3 and CN's II-XII intact bilaterally Neuro Narrative: Cranial nerves II through XII are grossly intact there are no focal neurologic deficits. Patient does report left facial paresthesia but this is chronic in nature there is no new/acute changes. No pronator drift no dysmetria no truncal ataxia. NIH stroke scale score of 0 Sensorium / Orientation: alert Psych mental status grossly normal Skin no rashes or lesions noted MDM MDM MDM Narrative Medical decision making narrative: Patient presented to the ER hypertensive but does report a past medical history of this and states it will typically spike when she sees a physician or is in the hospital. She is a stroke scale score of 0 and her physical exam indicates muscle as a contributing cause to her symptoms versus any underlying neurologic event. I discussed with patient obtaining basic labs because of the hypertension as well as a head CT to ensure there is no bleed. Patient states that she had blood work done recently which was all normal and her blood pressure was similar as it was today so she does not have concern for endorgan damage. She also reports that she has had a recent MRI and MRA that did not reveal any acute findings so she does not feel head CT is necessary. The patient was given Norflex to help with the muscle tension and spasm and on reevaluation her blood pressure has improved and her neuro exam remains normal. Therefore at this time with no focal findings on exam improvement of symptoms with treatment of muscle tension I do not feel there is need for further work-up and patient is otherwise safe for discharge Discharge Plan Triage Chief Complaint: Headache ED Provider: Jack Willett Dx/Rx/DC Orders Clinical Impression: Cephalgia, Hypertension, Muscle spasm Instructions: ED Headache Unspecified, ED Muscle Spasm Prescriptions: New methocarbamol 500 mg tablet 500 mg PO 4X/DAY PRN PRN (Reason: Muscle pain/spasm) Qty: 40 0RF No Action aspirin [Baby Aspirin] 81 mg Tablet,Chewable 81 mg PO DAILY losartan 100 mg Tablet 100 mg PO DAILY lorazepam [Ativan] 0.5 mg Tablet 0.5 mg PO DAILY PRN (Reason: Anxiety) Rx Instructions: STATES HAS 14 PILLS FOR THE YEAR metformin 500 mg tablet extended release 24 hr 500 mg PO DAILY Primary Care Provider: Radhika Montano Referrals: Radhika Montano MD [Primary Care Provider] - Activity Restrictions/Additional Instructions: Please continue your home medications as previously directed but add the Robaxin for improved muscle tension/spasm control. If you have any further concerns or worsening of symptoms please return to ER for repeat evaluation Disposition Disposition: Home, Self Care Discharge Date/Time: 05/04/22 04:06
[2022-05-04] MEDS: Orphenadrine 100 MG Tablet PO (04:03)
[2022-05-04 04:04] VITALS: BP 176/82; PULSE 81; RESP 16; O2SAT 97
== END 2022-05-04 04:06 | disposition home or self-care (01) ==
PROVIDERS: Emergency Provider Emergency Medicine; PCP Internal Medicine; Visit Provider Emergency Medicine
DX: R51.9 Headache, unspecified (principal); M62.838 Other muscle spasm; I10 Essential (primary) hypertension; Z87.891 Personal history of nicotine dependence; R20.2 Paresthesia of skin
CPT/HCPCS: 99284

== ENCOUNTER 2023-11-05 16:11 | Emergency (ER) | payer MEDICARE, OTHER, SELFPAY ==
[2023-11-05 16:12] VITALS: BP 227/97; PULSE 82; RESP 14; TEMP 36.6; O2SAT 94; BMI 29.5
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
--- NOTE | 2023-11-05 17:40 | CT_ITS ---
STUDY: CT BRAIN WITHOUT CONTRAST REASON FOR EXAM: Female, 88 years old. Injury/Pain RADIATION DOSAGE (If Supplied By Facility): CTDIvol = ( 44.99 ) mGy, DLP = ( 812.98 ) mGycm TECHNIQUE: Transaxial CT imaging of the brain was performed without administration of intravenous contrast material. Individualized dose optimization techniques were used for this CT. COMPARISON: December 03, 2020. FINDINGS: Normal soft tissue structures. Normal calvarium. Calcific plaquing of the cavernous carotids Normal size ventricles and extra-axial spaces for the patient''s age. Mild chronic periventricular white matter ischemic changes.. Normal basal ganglia and thalami. Normal brainstem. Normal cerebellum. There is no intracranial hemorrhage. There are no findings of an acute ischemic infarction. Normal visualized paranasal sinuses. Postop changes of the orbits No significant change since prior exam CT/Brain/Head without Contrast IMPRESSION: Mild chronic periventricular white matter ischemic change. No acute intracranial bleed. Electronically Signed: Ezequiel Amaya MD at 18:12 EDT ,
[2023-11-05 18:11] VITALS: BP 198/89; PULSE 74; RESP 18; O2SAT 95
[2023-11-05 19:07] VITALS: BP 169/73; PULSE 94; RESP 19; TEMP 36.2; O2SAT 97
== END 2023-11-05 19:08 | disposition home or self-care (01) ==
PROVIDERS: Emergency Provider Emergency Medicine; PCP Internal Medicine; Visit Provider Emergency Medicine
DX: S09.90XA Unspecified injury of head, initial encounter (principal); V49.40XA Driver injured in collision with unspecified motor vehicles in traffic accident, initial encounter; Z87.891 Personal history of nicotine dependence
CPT/HCPCS: 70450; 99282

== ENCOUNTER 2024-01-08 10:30 | Outpatient (RCR) | payer MEDICARE, OTHER, SELFPAY ==
--- NOTE | 2023-10-23 15:50 | HP.PTEVAL_ITS ---
Patient's Visit Information Visit Information Visit Information: JOSUE CONROY is a 88 year old F referred to Physical Therapy by Dr. 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 Date of Evaluation: 10/23/23 Physical Therapist: Juan A Montilla, PT, Cert MDT, OCS Visit Plan Frequency: 2x /Week Duration: 4 Weeks Plan: PT INTERVENTIONS DLS ,LUMBAR FLEXION EX'S ,POSTURAL EX'S ,ACTIVITY MODIFICATION AND MODALITIES PRN Subjective Subjective: This 88 y/o female presents to physical therapy for lumbar pain and right leg symptoms. Patient has had lumbar radicular right leg many years which has has been intermittent. Most recently 2weeks was walking a lot noticed pain exacerbation. Seen DR recommended PT . Patient has had epidural injections in past by pain management. Location right glut to hamstrings. Aggravating factors standing/walking less < 10mins,. Alleviating better. Coughing/sneezing-. Bowel.bladder- Denies paresthesia/tingling - . Patient sleeping okay. No medications for pain. Patient condition affects QOL and function. Patient goals to decrease pain. SOCIAL:single VOCATION: Retired Pain Right Back: Pain Intensity (Out of 10): 2 Pain Intensity Range: 10 Right Buttocks: Pain Intensity (Out of 10): 2 Pain Intensity Range: 10 Objective Objective: POSTURE: mild forward posture GAIT: reciprocal pattern NEURO: denies paresthesia/tingling ,reflexes L3-4 ,L4-5 ,L5-S1 1/3 SYMMETRIES: align LUMBAR ROM: flexion min loss ,extension min/mod loss ,side glides min FLEXABLITY: hamstrings bishop tight MMT: quads/hams 4/5 ,hip flexion 4-/5 ,ankle 4/5 Special Tests L/S Slump test left side: Negative L/S Slump test right side: Negative L/S Left Straight Leg Raise: Negative L/S Right Straight Leg Raise: Negative Balance/Special Test Scores Oswestry Low Back Score: 23 Goals Goal 1:: Patient to be I with HEP for back Goal Time Frame: 4-6 Weeks Goal 2:: Patient to demonstrate 50% improvement with less pain and improved function Goal Time Frame: 4-6 Weeks Goal 3:: Patient to improve lumbar ROM for function of recovery to put on shoes Goal Time Frame: 4-6 Weeks Goal 4:: Patient to improve back oswestry score by 5 point to improve function Goal Time Frame: 4-6 Weeks Goal 5:: Patient to improve ability walking and standing > 20-30 min to improve ADLS Goal Time Frame: 4-6 Weeks Rehabilitation Potential Physical Therapy Diagnosis: This patient has right lumbar foraminal stenosis with pain with walking/standing better with flexion and sitting thus benefit from skilled PT Rehabilitation Potential: Good Anticipated Interventions Patient/Client Instruction: Educate patient on: Condition and Plan of Care For the Purpose of:: To decrease pain, To increase ROM, To improve muscle performance and motor function, To improve ability to perform ADL's, To increase tolerance to activity/condition/position, To improve ability of physical actions for home/community/work/leisure, To improve health of tissue, To decrease soft tissue restriction, To increase flexibility/ROM, To assume or resume ADL's, To reduce risk of recurrence and To improve tolerance to ADL's Therapeutic Exercise to Include: Strength training, Body mechanics, Postural training, Flexibilty training and Dynamic Lumbar Stabilization For the Purpose of:: To decrease pain, To increase ROM, To improve muscle performance and motor function, To improve ability to perform ADL's, To increase tolerance to activity/condition/position, To improve ability of physical actions for home/community/work/leisure, To improve gait and locomotor functions, To decrease soft tissue restriction, To increase flexibility/ROM, To improve endurance, To improve balance and To reduce risk of recurrence TENS: Yes IF ES: Yes Cryotherapy (ice pack, ice massage): Yes Thermo therapy (hot pack): Yes Ultrasound (thermal/non thermal): Yes For the Purpose of:: To decrease pain, To increase ROM, To improve nutrient de livery to tissue, To increase oxygenation perfusion, To improve health of tissue and To decrease soft tissue restriction Text: Thank you for the opportunity to evaluate your patient. For Medicare and Medicare HMO plans, please review the plan of care and approve it. It will need to be FAXED BACK to us at [phone] for Medicare purposes. For Medicare only, by signing this I certify the plan of care. Please let me know if there are questions or concerns regarding this plan of care. Physician Signature: Date:
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
--- NOTE | 2024-01-08 11:14 | HP.PTDCSUM ---
Discharge Summary D/C summary: It has been my pleasure to treat JOSUE CONROY referred by Dr. 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 Discharge Date: 01/08/24 Please see the following information for a summary of their discharge status. Subjective Subjective: Patient can walk 15 mins Standing about same sitting helps to reduce pain Pain Right Back: Pain Intensity (Out of 10): 0 Right Buttocks: Pain Intensity (Out of 10): 0 R thigh: Pain Intensity (Out of 10): 0 Overall Improvement % Improvement: 50 Objective Objective/Function: POSTURE: mild forward posture GAIT: reciprocal pattern NEURO: denies paresthesia/tingling ,reflexes L3-4 ,L4-5 ,L5-S1 1/3 SYMMETRIES: align LUMBAR ROM: flexion WFL loss ,extension min/mod loss ,side glides min FLEXABLITY: hamstrings min tight MMT: quads/hams 4/5 ,hip flexion 4/5 ,ankle 4/5 Goals Goal 1:: Patient to be I with HEP for back Goal Progress: Goal Met Goal 2:: Patient to demonstrate 50% improvement with less pain and improved function Goal Progress: Goal Met Goal 3:: Patient to improve lumbar ROM for function of recovery to put on shoes Goal Progress: Goal Met Goal 4:: Patient to improve back oswestry score by 5 point to improve function Goal Progress: Goal Met Goal 5:: Patient to improve ability walking and standing > 20-30 min to improve ADLS Goal Progress: Goal Met Plan Plan: D/C TO HEP D/C Information Discharge Comments: HEP d/c sentence: If there are questions or concerns regarding this patient's physical therapy, please feel free to call me at [phone]. Thank you for the referral of this patient. Sincerely, Juan A Montilla, PT, Cert MDT, OCS Balance/Gait/Functional tests Balance/Special Test Scores Oswestry Low Back Score: 12 Improvement % Improvement: 50
== END 2024-01-08 16:15 | disposition home or self-care (01) ==
LOC: PT 10:30
PROVIDERS: PCP Internal Medicine; Referring Provider Internal Medicine; Visit Provider Internal Medicine
DX: M54.41 Lumbago with sciatica, right side (principal); G89.29 Other chronic pain
CPT/HCPCS: 97110; 97162; 97530

== ENCOUNTER 2024-02-17 18:36 | Emergency (ER) | payer MEDICARE, OTHER, SELFPAY ==
[2024-02-17] VITALS (8 sets, daily range): BP systolic 145–203; BP diastolic 81–117; PULSE 79–98; RESP 11–22; TEMP 36.8; O2SAT 94–99; BMI 27.9
--- NOTE | 2024-02-17 19:38 | EDS_ITS ---
HPI History of Present Illness Chief Complaint: Chest Other Detail of Chief Complaint: Left back and left arm pain Informant: patient Narrative Narrative: Patient presents to the emergency department complaint of pain in her left upper back and left arm that started few hours ago while driving home after working on some greeting cards. Patient states that she was just recently diagnosed with atrial flutter and had an echocardiogram and started on Eliquis. She has no heart history otherwise. No stents. Patient states that pain is actually improved now but is just mild discomfort. She was worried about her heart. She denies recent travel or surgery. She does recall a fall 3 days ago where she tripped on her slippers and fell onto her knees and has some bruising to the right knee. She started Eliquis the following day she had not been on Eliquis at that time. She think she may have slightly bumped her head but she had no loss of consciousness and denies headache. [facility] Medical History (Updated 02/17/24 @ 23:[address] Cara Gordon, DO) Tonsillectomy planned HTN (hypertension) Home Medications ?Medication ?Instructions ?Recorded ?Last Taken ?Type aspirin 81 mg chewable tablet 81 mg PO DAILY 12/03/20 Unknown History lorazepam 0.5 mg tablet (Ativan) 0.5 mg PO DAILY PRN Anxiety 12/03/20 Unknown History losartan 100 mg tablet 100 mg PO DAILY 12/03/20 Unknown History metformin 500 mg tablet,extended 500 mg PO DAILY 05/04/22 Unknown History release 24 hr methocarbamol 500 mg tablet 500 mg PO 4X/DAY PRN PRN Muscle 05/04/22 Unknown Rx pain/spasm #40 tabs Allergy/AdvReac Type Severity Reaction Status Date / Time atorvastatin Allergy NEEDS Verified 02/17/24 18:40 FOLLOW-UP cephalexin Allergy NEEDS Verified 02/17/24 18:40 FOLLOW-UP colesevelam HCl (From Allergy Other Verified 02/17/24 18:40 WelChol) lisinopril Allergy NEEDS Verified 02/17/24 18:40 FOLLOW-UP Penicillins Allergy Other Verified 02/17/24 18:40 simvastatin (From Zocor) Allergy NEEDS Verified 02/17/24 18:40 FOLLOW-UP Surgical History Hx of melanoma excision Hx of tonsillectomy Hx of appendectomy Hx of cholecystectomy Hx of removal of ovary History of hysterectomy Social History Smoking Status: Former smoker ROS ROS ED Review of Systems ROS Unobtainable: other Constitutional Constitutional ED: Reports lethargy; Denies chills, fever(s), sweats or weight loss Eyes Eyes: Denies blurry vision, change in vision or diplopia ENT ENT ED: Denies rhinorrhea or sore throat Cardiovascular Cardiovascular: Denies chest pain, orthopnea or racing heartbeat Respiratory/Chest Respiratory/Chest: Denies cough, dyspnea, dyspnea on exertion, orthopnea or sputum Gastrointestinal Gastrointestinal: Denies abdominal pain, diarrhea, nausea or vomiting Genitourinary Genitourinary ED: Denies dysuria, hematuria or urinary frequency Musculoskeletal Musculoskeletal: Reports back pain and other Details: Left arm pain ; Denies arthralgias, myalgias or neck pain Integumentary Denies abscess, Abrasions or rash Neurologic Neurologic: Denies headache(s) or weakness Psychiatric Psychiatric: Denies anxiety, depression or suicidal thoughts Endocrine Endocrinology: Denies polydipsia, polyphagia or polyuria Hematologic/Lymphatic Hematologic/Lymphatic: Denies easy bleeding, easy bruising or lymphadenopathy Allergic/Immunologic Allergic/Immunologic ED: Denies mouth swelling, tongue swelling or urticaria EXAM Physical Exam Const Vital Signs: 02/17/24 18:37 02/17/24 19:10 02/17/24 19:47 Temperature 98.2 F Temperature Source Temporal Pulse Rate 81 Respiratory Rate 16 Respiratory Effort Normal Blood Pressure 203/117 H Blood Pressure Mean 145 Pulse Ox 99 Oxygen Delivery Method Room Air Room Air 02/17/24 19:57 02/17/24 20:00 02/17/24 20:15 Temperature Temperature Source Pulse Rate 88 87 93 Respiratory Rate 13 11 L 14 Respiratory Effort Blood Pressure 148/81 H Blood Pressure Mean 101 Pulse Ox 94 Oxygen Delivery Method Room Air 02/17/24 20:30 02/17/24 20:45 02/17/24 22:00 Temperature Temperature Source Pulse Rate 89 98 85 Respiratory Rate 12 16 22 H Respiratory Effort Blood Pressure 159/89 H 163/95 H Blood Pressure Mean 104 117 Pulse Ox 95 Oxygen Delivery Method Room Air Positive well nourished and well developed General Appearance ED: well developed and NAD HEENT Reports TM's clear and moist mucous membranes normocephalic and atraumatic; Negative for trauma or tenderness Tympanic Membrane ED: Yes TM's clear Eyes PERRL and EOMs intact bilaterally General Eye ED: Negative for pale conjunctiva or scleral icterus Neck no lymphadenopathy, supple and no JVD General: Negative for tenderness Chest Wall inspection of chest normal and palpation of chest normal Chest: Negative for tenderness Resp normal respiratory effort and clear to auscultation bilaterally Effort and Inspection: Negative for respiratory distress or pain with movement Auscultation: Negative for rhonchi, wheezes or diminished lung sounds Cardio regular rate, regular rhythm, S1 normal heart sound, S2 normal heart sound and no murmurs Peripheral Pulses: pulses 2+ throughout GI normal to inspection, nondistended, normoactive bowel sounds, soft to palpation, non-tender, non-distended and no masses Back/Spine no CVA tenderness and no thoracic nor lumbar tenderness Back/Spine Narrative: Patient with tenderness palpation over the left upper paraspinal musculature and left trapezius that seems to reproduce her pain. Extremity normal to inspection General Extremety ED: Negative for edema General Extremity: Negative for edema Neuro oriented x3, CN's II-XII intact bilaterally, no sensory deficits noted and gait normal Sensorium / Orientation: awake, alert, oriented to person, oriented to place and oriented to time Motor Exam: strength 5/5 throughout and strength abnormal Psych mental status grossly normal Skin no rashes or lesions noted and no wounds MDM MDM MDM Narrative Medical decision making narrative: Patient presents with upper back pain pain her left arm that started after working on some greeting cards. Recently diagnosed with A-fib and and currently o Eliquis. She is not describing any chest pain. Patient concerned about atypical chest pain and comes in for evaluation. On exam she does have somewhat reproducible upper back pain. Suspicion low for cardiac disease. EKG obtained showed atrial flutter with ventricular rate of 98 bpm with variable block. CBC with differential showed a white count 7.6 with hemoglobin 13.5 and platelet count of 309. Chemistries unremarkable. Troponin was normal at 7. Delta troponin normal at 10. This point patient will be discharged to home. Advised to follow-up with her primary care physician within next 5 to 7 days. Patient to return if chest pain, exertional dyspnea, or condition should worsen anyway. Lab Data Attestation: I reviewed the patient's lab results. Labs: Laboratory Results - last 24 hr 02/17/24 02/17/24 19:45 22:00 WBC 7.6 RBC 4.61 Hgb 13.5 Hct 40.3 MCV 87.4 MCH 29.3 MCHC 33.5 RDW Std Deviation 43.5 RDW Coeff of Siri 13.6 Plt Count 309 MPV 9.8 Immature Gran % (Auto) 0.100 Neut % (Auto) 57.7 Lymph % (Auto) 34.2 K[place]t % (Auto) 4.9 Eos % (Auto) 2.6 Baso % (Auto) 0.5 Absolute Neuts (auto) 4.4 Absolute Lymphs (auto) 2.59 Nucleated RBC % 0 Sodium 143 Potassium 3.4 L Chloride 110 H Carbon Dioxide 25.0 Anion Gap 8 BUN 11 Creatinine 0.66 Estim Creat Clear Calc 51.54 Est GFR (MDRD) Af Amer 110 Est GFR (MDRD) Non-Af 91 BUN/Creatinine Ratio 16.7 Glucose 104 Calcium 9.2 Troponin I High Sens 7 10 Radiography Diagnostic Testing: Clinical Impression(s) from Imaging Studies Chest X-Ray 02/17/24 19:38 IMPRESSION: Minimal left basilar discoid atelectasis or scarring. No acute cardiopulmonary pathology Electronically Signed: Ezequiel Amaya MD at 20:07 EDT , 1 view chest x-ray obtained interpreted by myself as no evidence of infiltrate or pneumothorax or acute disease process. Radiology felt there was discoid atelectasis or scarring in the left basilar region otherwise no acute process. EKG Initial EKG: Attestation: I personally reviewed and interpreted this EKG as follows: Comments: Atrial flutter with ventricular rate of [address] changes Discharge Plan Triage Chief Complaint: Chest Other ED Provider: Cara Gordon Dx/Rx/DC Orders Clinical Impression: Back pain Instructions: ED Back and Neck Pain, General Prescriptions: No Action aspirin [Baby Aspirin] 81 mg Tablet,Chewable 81 mg PO DAILY losartan 100 mg Tablet 100 mg PO DAILY lorazepam [Ativan] 0.5 mg Tablet 0.5 mg PO DAILY PRN (Reason: Anxiety) Rx Instructions: STATES HAS 14 PILLS FOR THE YEAR metformin 500 mg tablet extended release 24 hr 500 mg PO DAILY methocarbamol 500 mg tablet 500 mg PO 4X/DAY PRN PRN (Reason: Muscle pain/spasm) Qty: 40 0RF Primary Care Provider: Radhika Montano Referrals: Radhika Montano MD [Primary Care Provider] - 3-5 Days Print Language: Mongolian Disposition Disposition: Home, Self Care
--- NOTE | 2024-02-17 19:38 | RAD_ITS ---
STUDY: X-RAY CHEST REASON FOR EXAM: Female, 88 years old. chest pain TECHNIQUE: AP portable COMPARISON: February 10, 2012. FINDINGS: Minimal left basilar discoid atelectasis or scarring. There is no demonstrated pleural abnormality. Normal size heart. Normal mediastinum and walker. Normal visualized pulmonary arteries. Tortuous mildly calcified d aortic arch and descending thoracic aorta. Heart monitor noted projecting over the left mid lung field Normal visualized thoracic spine. Normal visualized ribs, clavicles, and shoulders. There is no demonstrated abnormality of the visualized soft tissue structures of the upper abdomen. RAD/Chest 1 View (Portable) IMPRESSION: Minimal left basilar discoid atelectasis or scarring. No acute cardiopulmonary pathology Electronically Signed: Ezequiel Amaya MD at 20:07 EDT ,
--- NOTE | 2024-02-17 19:38 | EKG12_ITS ---
Test Reason : SHOULDER PAIN Blood Pressure : / mmHG Vent. Rate : 098 BPM Atrial Rate : 375 BPM P-R Int : 000 ms QRS Dur : 088 ms QT Int : 310 ms P-R-T Axes : 000 018 039 degrees QTc Int : [address] abnormality Abnormal ECG Confirmed by Chan Bower ([id number]), research editor SALLY SARKAR ([id number]) on 02/19/2024 6:36:46 AM Referred By: EVELIA Confirmed By:Chan Bower
[2024-02-17 20:11] LABS: Absolute Lymphocyte Count 2.59 X10^3/uL (0.83-4.51); Absolute Neutrophil Count 4.4 X10^3/uL (2.0-7.7); Basophil# 0.04 X10^3/uL; Basophil% 0.5 % (0-1); Eosinophils% 2.6 % (0-5); Hematocrit 40.3 % (37-47); Hemoglobin 13.5 g/dL (12.0-15.0); Lymphocyte # 2.59 X10^3/ul (0.83-4.51); Lymphocyte % 34.2 % (19-41); Mean Corp Hgb Conc 33.5 g/dL (32-36); Mean Corpuscular Hgb 29.3 pg (27.0-32.0); Mean Corpuscular Volume 87.4 fL (81-99); Mean Platelet Vol. 9.8 fl (6.2-12.0); Monocyte# 0.37 X10^3/uL; Monocyte% 4.9 % (0-10); NRBC Flagged by Analyzer 0 % (0-5); Neutrophil # 4.37 X10^3/uL (2.7-7.7); Neutrophil % 57.7 % (47-70); Platelet Count 309 K/mm3 (150-450); RBC Distribution Width CV 13.6 % (11.6-14.6); RBC Distribution Width SD 43.5 fl (35.1-43.9); Red Blood Count 4.61 M/mm3 (4.2-5.4); White Blood Count 7.6 K/mm3 (4.4-11.0)
[2024-02-17 20:12] LABS: Anion Gap 8 (5-15); BUN 11 mg/dL (7-18); BUN/Creat Ratio 16.7 RATIO (10-20); Calcium,Total 9.2 mg/dL (8.5-10.1); Chloride 110 mmol/L (98-107); Creatinine, Serum 0.66 mg/dL (0.55-1.02); EST Glomerular Filtration Rate 91 mL/min (>60); Est Glom Filt Rate - Afr Amer 110 mL/min (>60); Estimated Creatinine Clearance 51.54 ml/min; Glucose 104 mg/dL (74-106); Potassium 3.4 mmol/L (3.5-5.1); Sodium Level 143 mmol/L (136-145); Troponin-I HS (w/2H Reflex) 7 pg/mL (3.0-54.0)
[2024-02-17 21:51] LABS: Reflex Troponin-HS? (from REC) Y
[2024-02-17 22:28] LABS: Troponin-I HS 10 pg/mL (3.0-54.0)
== END 2024-02-17 23:23 | disposition home or self-care (01) ==
PROVIDERS: Emergency Provider Emergency Medicine; PCP Internal Medicine; Visit Provider Emergency Medicine
DX: M54.9 Dorsalgia, unspecified (principal); Z87.891 Personal history of nicotine dependence
CPT/HCPCS: 71045; 80048; 84484; 85025; 93005; 99283; A4216

== ENCOUNTER → 2024-04-21 | Outpatient (CLI) | payer MEDICARE, OTHER, SELFPAY ==
--- NOTE | 2024-04-21 20:59 | STRESSREP ---
Stress Test Report Pharmacologic myocardial perfusion stress test. 88-year-old lady with a history of abnormal EKG Resting EKG demonstrates atrial fibrillation with a rate of 75 bpm. Resting blood pressure is 132/90 mmHg. 0.4 mg of regadenoson was infused per usual protocol followed by rapid intravenous saline flush injection. Continuous EKG monitoring was performed. The maximum heart rate was 100 bpm which was 74 beats of max impacted heart rate the maximum workload was 1 metabolic equivalent. At rest there were no ST or T wave changes noted to suggest ischemia and at peak infusion nonspecific ST changes were noted which did not meet the criteria for ischemia. No clinical angina is noted. The final blood pressure was 120/70 mmHg. Myocardial perfusion protocol. 13.4 mCi of technetium 99m sestamibi was injected at rest. 0.4 mg of regadenoson was infused per usual protocol. At peak infusion 41.3 mCi of technetium 99m sestamibi was injected stress images were obtained stress and rest images were reconstructed and compared in the short axis vertical long and horizontal long axis. Gated images were also obtained. Perfusion SPECT analysis: Review of the stress images demonstrate normal uptake of tracer noted in all areas of the myocardium. The resting images similar demonstrated normal uptake of tracer noted in all areas of the myocardium. No areas of reversibility are noted to suggest ischemia and no previous infarct is noted. Gated SPECT analysis: The gated ejection fraction is 73%. Conclusion: Normal pharmacologic myocardial perfusion stress test. Preserved ejection fraction.
== END | disposition home or self-care (01) ==
PROVIDERS: PCP Internal Medicine; Referring Provider Internal Medicine Cardiovascular Disease; Visit Provider Internal Medicine Cardiovascular Disease
DX: R94.31 Abnormal electrocardiogram [ECG] [EKG] (principal); I48.91 Unspecified atrial fibrillation; I10 Essential (primary) hypertension
CPT/HCPCS: 78452; 93017; A9500; A4216; J2785

== ENCOUNTER → 2024-06-04 | Outpatient (CLI) | payer MEDICARE, OTHER, SELFPAY ==
[2024-06-04 12:10] LABS: Absolute Lymphocyte Count 2.49 X10^3/uL (0.83-4.51); Absolute Neutrophil Count 6.9 X10^3/uL (2.0-7.7); Basophil# 0.05 X10^3/uL; Basophil% 0.5 % (0-1); Eosinophil# 0.18 X10^3/uL; Eosinophils% 1.8 % (0-5); Hemoglobin 15.1 g/dL (12.0-15.0); Lymphocyte # 2.49 X10^3/ul (0.83-4.51); Lymphocyte % 24.6 % (19-41); Mean Corp Hgb Conc 32.8 g/dL (32-36); Mean Corpuscular Hgb 29.2 pg (27.0-32.0); Mean Corpuscular Volume 88.8 fL (81-99); Mean Platelet Vol. 9.8 fl (6.2-12.0); Monocyte% 4.9 % (0-10); NRBC Flagged by Analyzer 0 % (0-5); Neutrophil # 6.86 X10^3/uL (2.7-7.7); Neutrophil % 67.9 % (47-70); Platelet Count 354 K/mm3 (150-450); RBC Distribution Width CV 13.8 % (11.6-14.6); RBC Distribution Width SD 45.3 fl (35.1-43.9); Red Blood Count 5.18 M/mm3 (4.2-5.4); White Blood Count 10.1 K/mm3 (4.4-11.0)
[2024-06-04 12:37] LABS: Anion Gap 8 (5-15); BUN 16 mg/dL (7-18); BUN/Creat Ratio 18.1 RATIO (10-20); Calcium,Total 9.6 mg/dL (8.5-10.1); Chloride 107 mmol/L (98-107); Creatinine, Serum 0.88 mg/dL (0.55-1.02); EST Glomerular Filtration Rate 64 mL/min (>60); Est Glom Filt Rate - Afr Amer 78 mL/min (>60); Glucose 109 mg/dL (74-106); Sodium Level 138 mmol/L (136-145)
[2024-06-05 09:37] LABS: BNP,B-Type NATRIURETIC PEPTIDE 75.9 pg/mL (0-100)
== END | disposition home or self-care (01) ==
LOC: LAB 11:19
PROVIDERS: PCP Internal Medicine; Referring Provider Physician Assistant Medical; Visit Provider Physician Assistant Medical
DX: I48.91 Unspecified atrial fibrillation (principal); R06.09 Other forms of dyspnea
CPT/HCPCS: 36415; 80048; 83880; 85025

== ENCOUNTER → 2024-12-14 | Outpatient (CLI) | payer MEDICARE, OTHER, SELFPAY | END | disposition home or self-care (01) | LOC: PSN 10:52 | PROVIDERS: PCP Internal Medicine; Referring Provider Physician Assistant Medical; Visit Provider Physician Assistant Medical | DX: I48.11 Longstanding persistent atrial fibrillation (principal) | CPT/HCPCS: 93225; 93226 ==

== ENCOUNTER → 2025-02-17 | Outpatient (CLI) | payer MEDICARE, OTHER, SELFPAY ==
--- NOTE | 2025-02-17 09:45 | RAD_ITS ---
PROCEDURE: CHEST PA AND LATERAL 02/17/2025 REASON FOR EXAM: SHORTNESS OF BREATH, ORTHOPNEA TECHNIQUE: Procedure Code: RADCXR Modality: DX Procedure: CHEST PA AND LATERAL FINDINGS: The heart is enlarged. The lungs are hyperaerated but clear. No acute osseous abnormalities. Subcentimeter homogeneous calcific densities within the right axilla and left breast. RAD/Chest PA and Lateral IMPRESSION: Cardiomegaly. No focal pulmonary consolidation, effusion, or pneumothorax. Subcentimeter benign-appearing calcifications in the right axilla and left joseph [address], likely lymph node or dystrophic calcifications. No acute cardiopulmonary abnormality. Reading Location: [id number]
[2025-02-17 10:32] LABS: Hematocrit 43.5 % (37-47); Hemoglobin 14.3 g/dL (12.0-15.0); Immature Granulocytes Count 0.030 X10^3/uL (0.0-0.0); Mean Corp Hgb Conc 32.9 g/dL (32-36); Mean Corpuscular Volume 91.2 fL (81-99); Mean Platelet Vol. 10.1 fl (6.2-12.0); NRBC Flagged by Analyzer 0 % (0-5); Platelet Count 309 K/mm3 (150-450); RBC Distribution Width CV 13.5 % (11.6-14.6); RBC Distribution Width SD 45.8 fl (35.1-43.9); Red Blood Count 4.77 M/mm3 (4.2-5.4); White Blood Count 8.4 K/mm3 (4.4-11.0)
[2025-02-17 11:29] LABS: Anion Gap 12 (5-15); BUN 13 mg/dL (4-19); BUN/Creat Ratio 16.6 RATIO (10-20); Calcium,Total 9.8 mg/dL (7.6-11.0); Carbon Dioxide 25.3 mmol/L (21.0-32.0); Chloride 106 mmol/L (98-108); Glucose 134 mg/dL (70-99); Potassium 4.3 mmol/L (3.3-5.1); Pro- Brain NATRIURETIC PEPTIDE 1007 pg/mL (<=1800)
== END | disposition home or self-care (01) ==
LOC: LAB 09:40
PROVIDERS: PCP Internal Medicine; Referring Provider Student in an Organized Health Care Education/Training Program; Visit Provider Student in an Organized Health Care Education/Training Program
DX: R06.02 Shortness of breath (principal); I48.11 Longstanding persistent atrial fibrillation; R06.01 Orthopnea; Z79.01 Long term (current) use of anticoagulants
CPT/HCPCS: 36415; 71046; 80048; 83880; 85025

== ENCOUNTER 2025-03-03 12:02 | Outpatient (RCR) | payer SELFPAY | END 2025-03-04 23:59 | LOC: NS 12:02 | PROVIDERS: PCP Internal Medicine | DX: Z71.3 Dietary counseling and surveillance (principal) ==

== ENCOUNTER 2025-03-09 16:11 | Emergency (ER) | payer MEDICARE, OTHER, SELFPAY ==
[2025-03-09 16:12] VITALS: BP 201/114; PULSE 105; RESP 22; TEMP 36.3; O2SAT 98; BMI 28.8
--- NOTE | 2025-03-09 16:32 | EX.ED.DYSGE1 ---
HPI History of Present Illness Chief Complaint: Palpitations Informant: patient Narrative Narrative: 89-year-old female presenting to the emergency room stating she does not feel well. Patient states on Friday she had her influenza and COVID vaccinations for the season. States that yesterday she felt rundown and bit off. Today she states that she has felt shaky. She was making her neighbor who recently had surgery some soup and decided that she felt off enough that she wanted to come to the hospital to be evaluated. She denies a tremor more of a shakiness feeling. She states she is nervous in her blood pressure and heart rate are usually elevated when she comes to the hospital. Patient denies any fevers or chills. She notes her left arm is achy near the vaccination site. She notes nausea with no vomiting. No diarrhea. She denies any chest pain or shortness of breath. Patient is on Eliquis has not missed any doses. She notes that she has not had any new medications or dosing changes recently. [facility] Medical History SMITH (dyspnea on exertion) Longstanding persistent atrial fibrillation Calculus of gallbladder without cholecystitis without obstruction Condyloma DDD (degenerative disc disease) Controlled type 2 diabetes mellitus Periumbilical hernia Lichen sclerosus et atrophicus Lumbago IBS (irritable bowel syndrome) GERD (gastroesophageal reflux disease) Mixed hyperlipidemia Osteoarthritis Atrial flutter Chest pain Tonsillectomy planned HTN (hypertension) Home Medications ?Medication ?Instructions ?Recorded ?Last Taken ?Type lorazepam 0.5 mg tablet (Ativan) 0.5 mg PO DAILY PRN Anxiety 12/03/20 Unknown History metformin 500 mg tablet,extended 500 mg PO DAILY 05/04/22 Unknown History release 24 hr cholecalciferol (vitamin D3) 50 50 mcg PO QDAY 02/23/24 Unknown History mcg (2,000 unit) capsule losartan 100 mg tablet 100 mg PO QDAY 03/03/24 Unknown History metoprolol succinate 50 mg 50 mg PO QDAY #90 tabs 05/07/24 Unknown Rx tablet,extended release 24 hr (Toprol XL) apixaban 5 mg tablet (Eliquis) 5 mg PO BID #180 tabs 03/09/25 Unknown Rx Allergy/AdvReac Type Severity Reaction Status Date / Time cefdinir (From Omnicef) Allergy Intermediate Rash Verified 03/09/25 16:12 cephalexin Allergy Intermediate Nausea/Vom/ Verified 03/09/25 16:12 Diarrhea colesevelam HCl (From Allergy Nausea/Vom/ Verified 03/09/25 16:12 WelChol) Diarrhea Penicillins Allergy Other Verified 03/09/25 16:12 simvastatin (From Zocor) Allergy leg and Verified 03/09/25 16:12 thigh cramping atorvastatin AdvReac Intermediate myalgias Verified 03/09/25 16:12 lisinopril AdvReac Intermediate cough Verified 03/09/25 16:12 Family History Sister Afib H/O cardiac radiofrequency ablation Brother Myocardial infarction Surgical History History of surgery Hx of melanoma excision Hx of tonsillectomy Hx of appendectomy Hx of cholecystectomy Hx of removal of ovary History of hysterectomy Social History Smoking Status: Former smoker alcohol intake: current alcohol intake frequency: holidays/special occasions only substance use type: does not use ROS ROS ED ROS Narrative Sensation of shakiness without tremor Constitutional Constitutional ED: Reports other Details: Generally weak ; Denies chills, fever(s) or weight loss Eyes Eyes: Denies blurry vision, change in vision or diplopia ENT ENT ED: Denies ear pain, rhinorrhea or sore throat Cardiovascular Cardiovascular: Denies chest pain, orthopnea, palpitations or racing heartbeat Respiratory/Chest Respiratory/Chest: Denies cough, dyspnea or orthopnea Gastrointestinal Gastrointestinal: Denies abdominal pain, diarrhea, nausea or vomiting Genitourinary Genitourinary ED: Denies dysuria, hematuria or urinary frequency Musculoskeletal Musculoskeletal: Reports other Details: Left deltoid pain ; Denies arthralgias or myalgias Integumentary Denies abscess or rash Neurologic Neurologic: Denies headache(s) or weakness Psychiatric Psychiatric: Denies anxiety, depression, suicidal ideation or suicidal thoughts Endocrine Endocrinology: Denies polydipsia, polyphagia or polyuria Allergic/Immunologic Allergic/Immunologic ED: Denies mouth swelling, tongue swelling or urticaria EXAM Physical Exam Const Vital Signs: 03/09/25 16:12 03/09/25 16:35 03/09/25 18:00 Temperature 97.3 F L Temperature Source Temporal Pulse Rate 105 H 96 Respiratory Rate 22 H 21 H Respiratory Effort Normal Non-Labored Blood Pressure 201/114 H Blood Pressure Mean 143 Pulse Ox 98 97 Oxygen Delivery Method Room Air Positive well nourished and well developed General Appearance ED: well developed and NAD HEENT Reports normocephalic, head/scalp atraumatic and moist mucous membranes Eyes PERRL and EOMs intact bilaterally Neck no lymphadenopathy, supple and no JVD Resp normal respiratory effort and clear to auscultation bilaterally Cardio no murmurs Rate: tachycardic Rhythm: abnormal rhythm irregularly irregular GI normal to inspection, nondistended, normoactive bowel sounds and non-tender Palpation: soft Back/Spine no CVA tenderness and normal ROM Extremity Extremity Narrative: Left deltoid region shows some mild swelling and faint erythema. It is mildly tender to palpation. General Extremety ED: Negative for edema General Extremity: Negative for edema Neuro oriented x3 and CN's II-XII intact bilaterally Neuro Narrative: No tremors noted. Sensorium / Orientation: alert Motor Exam: strength 5/5 throughout Psych mental status grossly normal Mood & Affect: Negative for depressed or tearful Skin no rashes or lesions noted and no wounds MDM MDM MDM Narrative Medical decision making narrative: Differential diagnosis includes but not limited to hypertension electrolyte abnormalities immune reaction UTI dehydration anemia sepsis cardiac dysrhythmias Basic blood work is rather unremarkable glucose noted to be 136 CO2 20.6 anion gap 15 white count 5.9 urinalysis with 5-10 whites 1+ bacteria. This will be sent for culture. I revisited this with the patient and she denies any frequent urination or dysuria. Her blood pressure is down into the 160s systolically. Heart rate has been in the 90-100 range. I do wonder to what degree her vaccination plays in this. She obviously has a localized vaccine reaction to the left deltoid region. Would recommend monitoring for new symptoms return if worsening or concerns follow-up as needed History & Record Review Discussion w/independent historian: Patient Additional record(s) reviewed:: Prior outpatient record, Prior ED visit and Prior labs Lab Data Attestation: I reviewed the patient's lab results. Labs: Laboratory Results - last 24 hr 03/09/25 03/09/25 16:30 17:06 WBC 5.9 RBC 4.82 Hgb 14.4 Hct 43.1 MCV 89.4 MCH 29.9 MCHC 33.4 RDW Std Deviation 43.8 RDW Coeff of Siri 13.3 Plt Count 246 MPV 9.6 Immature Gran % (Auto) 0.300 Neut % (Auto) 56.8 Lymph % (Auto) 29.7 [place] % (Auto) 9.6 Eos % (Auto) 3.1 Baso % (Auto) 0.5 Absolute Neuts (auto) 3.3 Absolute Lymphs (auto) 1.74 Nucleated RBC % 0 Sodium 140 Potassium 3.9 Chloride 104 Carbon Dioxide 20.6 L Anion Gap 15 BUN 15 Creatinine 0.78 Estim Creat Clear Calc 51.28 Est GFR (MDRD) Non-Af 73 BUN/Creatinine Ratio 18.8 Glucose 136 H Calcium 9.8 Total Bilirubin 0.35 Direct Bilirubin 0.15 AST 27 ALT 21 Alkaline Phosphatase 53 Total Protein 7.2 Albumin 4.4 Globulin 2.9 Urine Color Yellow Urine Clarity Sl. Cloudy Urine pH 6.0 Ur Specific [place] 1.015 Urine Protein 30 H Urine Glucose (UA) Normal Urine Ketones Negative Urine Occult Blood Negative Urine Nitrite Negative Urine Bilirubin Negative Urine Urobilinogen Normal Ur Leukocyte Esterase 25 H Urine RBC 0-5 SEEN Urine WBC 5-10 SEEN Ur Squamous Epith Cells 0-5 SEEN Urine Bacteria 1+ Urine Mucus 0 SEEN Radiography Diagnostic Testing: Clinical Impression(s) from Imaging Studies Chest X-Ray 03/09/25 16:50 IMPRESSION: No Acute Findings. Reading Location: [facility] EKG Initial EKG: Attestation: I personally reviewed and interpreted this EKG as follows: Comments: Atrial fibrillation ventricular rate of 98 bpm Discharge Plan Triage Chief Complaint: Palpitations ED Provider: David Austin Dx/Rx/DC Orders Clinical Impression: Atrial fibrillation, Anticoagulated, Vaccine reaction Prescriptions: No Action cholecalciferol (vitamin D3) 50 mcg (2,000 unit) capsule 50 mcg PO QDAY lorazepam [Ativan] 0.5 mg Tablet 0.5 mg PO DAILY PRN (Reason: Anxiety) Rx Instructions: STATES HAS 14 PILLS FOR THE YEAR losartan 100 mg tablet 100 mg PO QDAY metformin 500 mg tablet extended release 24 hr 500 mg PO DAILY metoprolol succinate [Toprol XL] 50 mg tablet extended release 24 hr 50 mg PO QDAY Qty: 90 3RF Eliquis 5 mg tablet 5 mg PO BID Qty: 180 3RF Primary Care Provider: Radhika Montano Referrals: Radhika Montano MD [Primary Care Provider, Internal Medicine] - As Needed Print Language: Ukrainian Disposition Disposition: Home, Self Care
[2025-03-09 16:39] LABS: Hematocrit 43.1 % (37-47); Hemoglobin 14.4 g/dL (12.0-15.0); Immature Granulocytes Count 0.020 X10^3/uL (0.0-0.0); Mean Corp Hgb Conc 33.4 g/dL (32-36); Mean Corpuscular Volume 89.4 fL (81-99); Mean Platelet Vol. 9.6 fl (6.2-12.0); NRBC Flagged by Analyzer 0 % (0-5); Platelet Count 246 K/mm3 (150-450); RBC Distribution Width CV 13.3 % (11.6-14.6); RBC Distribution Width SD 43.8 fl (35.1-43.9); Red Blood Count 4.82 M/mm3 (4.2-5.4); White Blood Count 5.9 K/mm3 (4.4-11.0)
--- NOTE | 2025-03-09 16:50 | RAD_ITS ---
PROCEDURE: RAD/Chest 1 View (Portable)
[2025-03-09 17:13] LABS: Mucous, Urine 0 SEEN /hpf (<or=2+)
[2025-03-09 17:16] LABS: Color, Urine Yellow (Yellow); Glucose, Dipstick Normal (Normal); Ketone-Dipstick Negative (Negative); Leukocyte Esterase-Dipstick 25 /ul (Negative); Nitrite-Dipstick Negative (Negative); Occult Blood-Urine Negative /ul (Negative); Protein-Dipstick 30 mg/dl (Negative); Specific Gravity, Urine 1.015 (1.002-1.030); Urine Bilirubin Dipstick Negative (Negative)
[2025-03-09 17:58] LABS: AST(SGOT) 27 U/L (<=31); Alanine Aminotransfer ALT/SGPT 21 U/L (<=34); Albumin, Serum 4.4 g/dL (3.4-4.8); Alkaline Phosphatase 53 U/L (35-104); Anion Gap 15 (5-15); BUN 15 mg/dL (4-19); BUN/Creat Ratio 18.8 RATIO (10-20); Bilirubin, Direct 0.15 mg/dL (0.00-0.30); Calcium,Total 9.8 mg/dL (7.6-11.0); Carbon Dioxide 20.6 mmol/L (21.0-32.0); Chloride 104 mmol/L (98-108); Estimated Creatinine Clearance 51.28 ml/min (50-250); Globulin 2.9 g/dL (2.2-4.2); Glucose 136 mg/dL (70-99); Potassium 3.9 mmol/L (3.3-5.1)
[2025-03-09 18:00] VITALS: PULSE 96; RESP 21; O2SAT 97
[2025-03-09 19:01] LABS: Squamous Epithelial Cells - UA 0-5 SEEN /hpf (5-10)
[2025-03-09 19:02] LABS: Red Blood Cells-Urine 0-5 SEEN /hpf (0-5)
[2025-03-09 19:16] VITALS: BP 174/85; PULSE 100; RESP 16; TEMP 36.7; O2SAT 95
== END 2025-03-09 19:22 | disposition home or self-care (01) ==
PROVIDERS: Emergency Provider Emergency Medicine; PCP Internal Medicine; Visit Provider Emergency Medicine
DX: I48.91 Unspecified atrial fibrillation (principal); E11.9 Type 2 diabetes mellitus without complications; Z87.891 Personal history of nicotine dependence; Z79.01 Long term (current) use of anticoagulants
CPT/HCPCS: 71045; 80048; 80076; 81001; 85025; 87086; 87088; 93005; 99283; A4216